=== PATIENT | female | born 1985 | race Native Hawaiian/Other Pacific Islander ===

== ENCOUNTER 2018-01-10 13:31 | Outpatient (CLI) | payer BC | END 2018-01-10 17:00 | disposition home or self-care (01) | LOC: MAMMO 13:31 | DX: Z12.31 Encounter for screening mammogram for malignant neoplasm of breast (principal) ==

== ENCOUNTER 2021-03-20 11:07 | Outpatient (CLI) | payer BC | END 2021-03-20 22:57 | disposition home or self-care (01) | LOC: MAMMO 11:07 | PROVIDERS: ATTEND Nurse Practitioner | DX: Z12.31 Encounter for screening mammogram for malignant neoplasm of breast (principal) ==

== ENCOUNTER 2022-03-16 16:51 | Outpatient (CLI) | payer BC | END 2022-03-16 19:31 | disposition home or self-care (01) | LOC: RAD 16:51 | PROVIDERS: ATTEND Family Medicine | DX: M87.051 Idiopathic aseptic necrosis of right femur (principal); M87.052 Idiopathic aseptic necrosis of left femur ==